=== PATIENT | female | born 1975 | race Caucasian/White ===

== ENCOUNTER 2018-01-06 11:22 | Emergency (ER) | payer OTHER ==
[~2018-01-06] VITALS: Ht 165.1 cm; Wt 61.2 kg
--- NOTE | 2018-01-06 11:36 | ER Report ---
History and Physical Time Seen By MD: 11:35 Hx. of Stated Complaint: PT PRESENTS WITH HX OF FAINTING LAST NIGHT IN HER BR, HITTING HEAD AND SHOULDER. HAS HAD EPISODES IN THE PAST DUE TO LOW BP. FEELS IF SHE HAS NOT RECOVERED. ALSO HAD AN ODD PERIOD THIS MONTH FOLLOWED BY SEVERAL NEGATIVE PREG TESTS HPI/ROS CHIEF COMPLAINT: Syncopal episode HISTORY OF PRESENT ILLNESS: 42-year-old female patient presents to the emergency room with complaint of having had a syncopal episode last night. She states approximately 12:30 last night she got out of bed, feeling nauseated. She went into the bathroom and flushed all. She states that while she was doing that she was crouched down. She states that after she first with that she fainted, hitting her head on the counter as well as on the floor. Patient states that she has had episodes like this in the past, she states that she was evaluated in the hospital previously and was told that it was a vasovagal syncope. Patient states that today she is just not quite feeling right. She states she is feeling like she is having hard time concentrating. She states she is nauseated, however she has not had any vomiting. Patient states she is unable to go to sleep for 2 hours after this, feeling weak and crying. She states she is unable to sleep and that she wake up feeling better this morning. She states she has not been feeling much better. She states she does not normally take any medication. She is not currently doing anything to prevent . She states that her last period was 25 days late and was incredibly light. Patient is concerned that she may have a concussion. REVIEW OF SYSTEMS: Respiratory: No cough, no dyspnea. Cardiovascular: No chest pain, no palpitations. Gastrointestinal: No vomiting, no abdominal pain. Musculoskeletal: As noted above Allergies: Coded Allergies: No Known Drug Allergies (Unverified , 01/06/18) Home Meds Active Scripts Ondansetron (ZOFRAN ODT) 4 Mg Tab.rapdis, 4 MG PO Q6H Y for NAUSEA/VOMITING, # 20 TAB.CYNDI Prov:KHANH DUNNE 01/06/18 Ketorolac Tromethamine (KETOROLAC TROMETHAMINE) 10 Mg Tab, 10 MG PO Q6H, #20 TAB Prov:KHANH DUNNE 01/06/18 Past Medical/Surgical History Patient has a past medical history of vasovagal syncope. Patient has surgical history of a laparoscopic abdominal surgery, ICD placement. Reviewed Nurses Notes: Yes Hx Substance Use Disorder: No Hx Alcohol Use: No Constitutional Vital Sign - Last 24 Hours 01/06/18 01/06/18 01/06/18 01/06/18 11:28 11:28 11:30 11:52 Temp 98.4 Pulse 76 84 Resp 20 B/P (MAP) 107/72 107/72 (84) 114/65 (81) Pulse Ox 99 100 01/06/18 01/06/18 01/06/18 01/06/18 11:55 11:56 11:57 11:59 Pulse 72 89 87 B/P (MAP) 92/59 (70) 90/79 (83) 95/77 (83) 92/59 (70) 90/79 (83) 95/77 (83) 01/06/18 01/06/18 01/06/18 01/06/18 12:00 12:48 12:53 13:00 Pulse 76 80 Resp 12 15 B/P (MAP) 104/58 (73) 98/64 (75) Pulse Ox 98 97 01/06/18 01/06/18 13:23 13:30 Pulse 75 Resp 15 B/P (MAP) 97/65 (76) Pulse Ox 100 Intake and Output 01/06/18 01/06/18 01/07/18 15:00 23:00 07:00 Intake Total 1000 ml Balance 1000 ml Physical Exam General Appearance: The patient is alert, has no immediate need for airway protection and no current signs of toxicity. Eyes: Pupils equal and round no injection. ENT: Tympanic membranes are pearly-fernández, auditory canals are patent, mucous membranes are moist. Respiratory: Chest is non tender, lungs are clear to auscultation. Cardiac: regular rate and rhythm Gastrointestinal: Abdomen is soft and non tender, no masses, bowel sounds normal. Musculoskeletal: Neck: Neck is supple and non tender. Extremities have full range of motion and are non tender. Skin: No rashes or lesions. Neuro: Patient is alert and oriented 4, cranial nerves II through XII grossly intact. Patient was able to complete 3 word recall 3/3 at zero minutes and/3 at 5 minutes. Patient was able to complete serial sevens, she was spot on for 3 consecutive numbers and then she switched to 6 instead of 7. DIFFERENTIAL DIAGNOSIS: After history and physical exam differential diagnosis was considered for syncope including but not limited to vasovagal syncope, arrhythmia, dehydration, and blood loss. Medical Decision Making Data Points Result Diagram: 01/06/18 1133 01/06/18 1133 Laboratory Hematology Test 01/06/18 11:33 01/06/18 12:19 Red Blood Count 4.38 M/uL (4.17-5.56) Mean Corpuscular Volume 94.4 fL (80.0-96.0) Mean Corpuscular Hemoglobin 32.2 pg (26.0-33.0) Mean Corpuscular Hemoglobin Concent 34.1 g/dL (32.0-36.0) Red Cell Distribution Width 12.7 % (11.5-14.5) Mean Platelet Volume 7.3 fL (7.2-11.1) Neutrophils (%) (Auto) 89.2 % (39.4-72.5) Lymphocytes (%) (Auto) 5.3 % (17.6-49.6) Monocytes (%) (Auto) 4.8 % (4.1-12.4) Eosinophils (%) (Auto) 0.4 % (0.4-6.7) Basophils (%) (Auto) 0.3 % (0.3-1.4) Nucleated RBC Relative Count (auto) 0.0 /100WBC Neutrophils # (Auto) 10.8 K/uL (2.0-7.4) Lymphocytes # (Auto) 0.6 K/uL (1.3-3.6) Monocytes # (Auto) 0.6 K/uL (0.3-1.0) Eosinophils # (Auto) 0.0 K/uL (0.0-0.5) Basophils # (Auto) 0.0 K/uL (0.0-0.1) Nucleated RBC Absolute Count (auto) 0.00 K/uL Sodium Level 138 mmol/L (137-145) Potassium Level 3.7 mmol/L (3.5-5.0) Chloride Level 103 mmol/L (98-107) Carbon Dioxide Level 20 mmol/L (22-31) Blood Urea Nitrogen 12 mg/dl (7-18) Creatinine 0.80 mg/dl (0.52-1.04) Glomerular Filtration Rate Calc > 60.0 Whole Blood Glucose 102 mg/DL (75-110) Random Glucose 97 mg/dl (75-110) Calcium Level 9.0 mg/dl (8.4-10.2) Total Bilirubin 0.9 mg/dl (0.2-1.3) Aspartate Amino Transf (AST/SGOT) 20 U/L (0-35) Alanine Aminotransferase (ALT/SGPT) 27 U/L (0-56) Alkaline Phosphatase 73 U/L (0-126) Troponin I < 0.012 ng/ml Total Protein 7.9 gm/dl (6.3-8.2) Albumin 4.3 g/dl (3.5-5.0) Human Chorionic Gonadotropin, Qual Negative (NEGATIVE) Urine Color Yellow Urine Clarity Slightly-cloudy Urine pH 7.0 pH (4.8-9.5) Urine Specific [place] 1.010 Urine Protein Negative mg/dL (NEGATIVE) Urine Glucose (UA) Negative mg/dL (NEGATIVE) Urine Ketones 20 mg/dL (NEGATIVE) Urine Blood Large (NEGATIVE) Urine Nitrite Negative (NEGATIVE) Urine Bilirubin Negative (NEGATIVE) Urine Urobilinogen Negative mg/dL (0.2-1.9) Urine Leukocyte Esterase Negative (NEGATIVE) Urine RBC 5 /HPF (0-2/HPF) Urine WBC 4 /HPF (0-5/HPF) Urine Squamous Epithelial Cells Many /LPF (</=FEW) Urine Transitional Epithelial Cells Few /LPF (NONE-FEW) Urine Bacteria Few /HPF (NONE-FEW) Urine Hyaline Casts Few /LPF (NONE-FEW) Urine Mucus None /HPF (NONE-FEW) Chemistry Test 01/06/18 11:33 01/06/18 12:19 White Blood Count 12.1 k/uL (4.5-11.0) Red Blood Count 4.38 M/uL (4.17-5.56) Hemoglobin 14.1 g/dL (12.0-16.0) Hematocrit 41.4 % (34.0-47.0) Mean Corpuscular Volume 94.4 fL (80.0-96.0) Mean Corpuscular Hemoglobin 32.2 pg (26.0-33.0) Mean Corpuscular Hemoglobin Concent 34.1 g/dL (32.0-36.0) Red Cell Distribution Width 12.7 % (11.5-14.5) Platelet Count 377 K/uL (150-450) Mean Platelet Volume 7.3 fL (7.2-11.1) Neutrophils (%) (Auto) 89.2 % (39.4-72.5) Lymphocytes (%) (Auto) 5.3 % (17.6-49.6) Monocytes (%) (Auto) 4.8 % (4.1-12.4) Eosinophils (%) (Auto) 0.4 % (0.4-6.7) Basophils (%) (Auto) 0.3 % (0.3-1.4) Nucleated RBC Relative Count (auto) 0.0 /100WBC Neutrophils # (Auto) 10.8 K/uL (2.0-7.4) Lymphocytes # (Auto) 0.6 K/uL (1.3-3.6) Monocytes # (Auto) 0.6 K/uL (0.3-1.0) Eosinophils # (Auto) 0.0 K/uL (0.0-0.5) Basophils # (Auto) 0.0 K/uL (0.0-0.1) Nucleated RBC Absolute Count (auto) 0.00 K/uL Glomerular Filtration Rate Calc > 60.0 Whole Blood Glucose 102 mg/DL (75-110) Calcium Level 9.0 mg/dl (8.4-10.2) Total Bilirubin 0.9 mg/dl (0.2-1.3) Aspartate Amino Transf (AST/SGOT) 20 U/L (0-35) Alanine Aminotransferase (ALT/SGPT) 27 U/L (0-56) Alkaline Phosphatase 73 U/L (0-126) Troponin I < 0.012 ng/ml Total Protein 7.9 gm/dl (6.3-8.2) Albumin 4.3 g/dl (3.5-5.0) Human Chorionic Gonadotropin, Qual Negative (NEGATIVE) Urine Color Yellow Urine Clarity Slightly-cloudy Urine pH 7.0 pH (4.8-9.5) Urine Specific [place] 1.010 Urine Protein Negative mg/dL (NEGATIVE) Urine Glucose (UA) Negative mg/dL (NEGATIVE) Urine Ketones 20 mg/dL (NEGATIVE) Urine Blood Large (NEGATIVE) Urine Nitrite Negative (NEGATIVE) Urine Bilirubin Negative (NEGATIVE) Urine Urobilinogen Negative mg/dL (0.2-1.9) Urine Leukocyte Esterase Negative (NEGATIVE) Urine RBC 5 /HPF (0-2/HPF) Urine WBC 4 /HPF (0-5/HPF) Urine Squamous Epithelial Cells Many /LPF (</=FEW) Urine Transitional Epithelial Cells Few /LPF (NONE-FEW) Urine Bacteria Few /HPF (NONE-FEW) Urine Hyaline Casts Few /LPF (NONE-FEW) Urine Mucus None /HPF (NONE-FEW) Urinalysis Test 01/06/18 12:19 Urine Color Yellow Urine Clarity Slightly-cloudy Urine pH 7.0 pH (4.8-9.5) Urine Specific [place] 1.010 Urine Protein Negative mg/dL (NEGATIVE) Urine Glucose (UA) Negative mg/dL (NEGATIVE) Urine Ketones 20 mg/dL (NEGATIVE) Urine Blood Large (NEGATIVE) Urine Nitrite Negative (NEGATIVE) Urine Bilirubin Negative (NEGATIVE) Urine Urobilinogen Negative mg/dL (0.2-1.9) Urine Leukocyte Esterase Negative (NEGATIVE) Urine RBC 5 /HPF (0-2/HPF) Urine WBC 4 /HPF (0-5/HPF) Urine Squamous Epithelial Cells Many /LPF (</=FEW) Urine Transitional Epithelial Cells Few /LPF (NONE-FEW) Urine Bacteria Few /HPF (NONE-FEW) Urine Hyaline Casts Few /LPF (NONE-FEW) Urine Mucus None /HPF (NONE-FEW) EKG/Imaging EKG Interpretation 12 lead EKG: Rhythm: normal sinus rhythm Maxie: normal QRS: normal ST segments: Nonspecific ST abnormality Imaging 2 VIEWS CHEST INDICATION: Chest pain. Syncopal episode last night. COMPARISON: None available FINDINGS: Cardiomediastinal silhouette and pulmonary vessels within normal limits. There is no focal infiltrate or lobar consolidation. There is no pneumothorax or pleural effusion. No nodule. Upper abdomen is unremarkable. No acute bony abnormality. IMPRESSION: 1. No acute cardiopulmonary process. Report Dictated By: Edward Sarabia at 01/06/2018 12:48 PM Report E-Signed By: Edward Sarabia at 01/06/2018 12:49 PM ED Course/Re-evaluation ED Course Patient was admitted on exam room, history and physical were obtained. Differential diagnoses were considered. With the fall, loss consciousness CT scan of the head was done, a CBC, CMP, chest x-ray, EKG. Lab results were unremarkable, chest x-ray located, CT scan of the head was negative. I discussed the findings with the patient and her . I believe that the patient likely did have a vasovagal episode, she's had them in the past. I think that was caused by her nausea. Fact that she does have some slowed thinking I believe she does have a concussion. We'll go ahead and treat her for that. I would like her to follow-up with her primary care provider in the next week. Patient's sensation is having one, I do encourage that she find one for follow-up. I would like her to continue getting workup for the syncope that she' s had. Patient and her verbalized understanding and agreement with plan. Decision to Disposition Date: Jan 06, 2018 Decision to Disposition Time: 13:14 Depart Departure Latest Vital Signs Vital Signs Date Time Temp Pulse Resp B/P (MAP) Pulse Ox O2 Delivery O2 Flow Rate FiO2 01/06/18 13:30 97/65 (76) 01/06/18 13:23 75 15 100 01/06/18 11:28 98.4 Impression: Primary Impression: Concussion Additional Impression: Syncope Condition: Improved Disposition: HOME OR SELF-CARE New Scripts Ondansetron (ZOFRAN ODT) 4 Mg Tab.rapdis 4 MG PO Q6H Y for NAUSEA/VOMITING, #20 TAB.CYNDI Prov: KHANH DUNNE 01/06/18 Ketorolac Tromethamine (KETOROLAC TROMETHAMINE) 10 Mg Tab 10 MG PO Q6H, #20 TAB Prov: KHANH DUNNE 01/06/18 Patient Instructions: Concussion (ED) Additional Instructions: Get plenty of rest. Limit activity by pain. Limit TV and computer time. Monitor for confusion, increased irritability, uncontrollable vomiting, worsening headache or difficulty to arouse. Return to the ER if those are to occur. Follow up with your primary care provider in the next week. Problem Qualifiers Primary Impression: Concussion Encounter type: initial encounter Loss of consciousness presence/duration: without LOC Qualified Codes: S06.0X0A - Concussion without loss of consciousness, initial encounter Additional Impression: Syncope Syncope type: unspecified Qualified Codes: R55 - Syncope and collapse KHANH DUNNE Jan 06, 2018 11:36
[2018-01-06] MEDS ORDERED: NS(*) 0.9% 1000 ML BAG 1,000 ML IV ONE (11:48)
[2018-01-06 11:57] LABS: PLATELET COUNT, AUTOMATED 377 K/uL (150-450)
--- NOTE | 2018-01-06 12:54 | RADIOLOGY IMAGING REPORT ---
FACILITY: [facility] - [place] PATIENT NAME: Radha Johnson : 1975 MR: [id number] V: [id number] EXAM DATE: ORDERING PHYSICIAN: KHANH DUNNE TECHNOLOGIST: Location: [facility] Patient: Radha Johnson : 1975 Visit/Account:[id number] Date of Sevice: 01/06/2018 2 VIEWS CHEST INDICATION: Chest pain. Syncopal episode last night. COMPARISON: None available FINDINGS: Cardiomediastinal silhouette and pulmonary vessels within normal limits. There is no focal infiltrate or lobar consolidation. There is no pneumothorax or pleural effusion. No nodule. Upper abdomen is unremarkable. No acute bony abnormality. IMPRESSION: 1. No acute cardiopulmonary process. Report Dictated By: Edward Sarabia at 01/06/2018 12:48 PM Report E-Signed By: Edward Sarabia at 01/06/2018 12:49 PM WSN:[id number]
--- NOTE | 2018-01-06 12:55 | RADIOLOGY IMAGING REPORT ---
FACILITY: [facility] - [place] PATIENT NAME: Radha Johnson : 1975 MR: [id number] V: [id number] EXAM DATE: ORDERING PHYSICIAN: KHANH DUNNE TECHNOLOGIST: Location: [facility] Patient: Radha Johnson : 1975 Visit/Account:[id number] Date of Sevice: 01/06/2018 EXAMINATION: CT Head without intravenous contrast HISTORY: Syncope. Trauma. TECHNIQUE: Axial images were obtained from the skull base to the vertex without intravenous contrast . Sagittal and coronal reformatted images are also submitted. One of the following dose optimization techniques was utilized in the performance of this exam: Autom ated exposure control; adjustment of the mA and/or kV according to the patient's size; or use of an i terative reconstruction technique. Specific details can be referenced in the facility's radiology C T exam operational policy. COMPARISON: None. FINDINGS: Brain volume: Normal. Ventricles: Negative. Acute ischemic changes: None. Hemorrhage: None. Masses / edema: None. Almaguer-white: Negative. White matter: Negative. Vessels: Negative. Extra-axial: Negative. Calvarium / skull base: Negative. Visualized sinuses / orbits: Rightward nasal septal deviation. Otherwise negative. IMPRESSION: Rightward nasal septal deviation. Otherwise normal noncontrast head CT. Report Dictated By: Brady Roque MD at 01/06/2018 12:47 PM Report E-Signed By: Brady Roque MD at 01/06/2018 12:53 PM WSN:[id number]
--- NOTE | 2018-01-06 12:58 | EKG ---
FACILITY: [facility] - [place], [place] PATIENT NAME: SANTANA AU : [id number] MR: [id number] V: [id number] EXAM DATE: ORDERING PHYSICIAN: KHANH DUNNE TECHNOLOGIST: ABISAI Croft Reason : SYNCOPE Blood Pressure : / mmHG Vent. Rate : 071 BPM Atrial Rate : 071 BPM P-R Int : 140 ms QRS Dur : 080 ms QT Int : 398 ms P-R-T Axes : 074 062 054 degrees QTc Int : 432 ms Normal sinus rhythm Nonspecific ST abnormality Abnormal ECG No previous ECGs available Confirmed by SAMANTHA DENISE ([id number]) on 01/06/2018 5:44:25 PM Referred By: KHANH Confirmed By:SAMANTHA DENISE
[2018-01-06] MEDS ORDERED: KETOROLAC 30 MG/ML VIAL IVP ONE (13:00)
[2018-01-06] MEDS ORDERED: KET10 PO (13:13)
[2018-01-06] MEDS ORDERED: ONDA4TAB PO (13:27)
[2018-01-06 13:30] VITALS: BP 97/65
== END 2018-01-06 13:58 | disposition home or self-care (01) ==
LOC: ER 11:32
DX: S06.0X0A Concussion without loss of consciousness, initial encounter (principal); R55 Syncope and collapse
CPT/HCPCS: 36416; 70450; 71046; 81001; 82948; 84484; 84703; 85025; 93005; 96361; 96374; 99284; J1885; J7030; 82040; 82247; 82310; 82374; 82435; 82565; 82947; 84075; 84132; 84155; 84295; 84450; 84460; 84520

== ENCOUNTER → 2018-01-31 | Outpatient (CLI) | payer OTHER ==
[2018-01-31] VITALS (28 sets, daily range): BP systolic 79–102; BP diastolic 58–81
[~2018-01-31] MED LIST: KET10 PO; NITROGLYCERIN 0.4 MG SUBL SL ONE; NS(*) 0.9% 500 ML BAG 500 ML IV ONE; ONDA4TAB PO
== END ==
LOC: ICU OUTPT 07:07
PROVIDERS: ATTEND Physician Assistant
DX: R55 Syncope and collapse (principal)
CPT/HCPCS: 93660

== ENCOUNTER → 2018-01-31 | Outpatient (CLI) | payer OTHER ==
[~2018-01-31] MED LIST changes: -NITROGLYCERIN 0.4 MG SUBL SL ONE; -NS(*) 0.9% 500 ML BAG 500 ML IV ONE
--- NOTE | 2018-02-01 17:23 | RADIOLOGY IMAGING REPORT ---
FACILITY: [facility] PATIENT NAME: SANTANA AU : [id number] MR: [id number] V: [id number] EXAM DATE: ORDERING PHYSICIAN: EREN VAN TECHNOLOGIST: Roxy Frye EXAMINATION:TWO-DIMENSIONAL ECHOCARDIOGRAPH REASON:SYNCOPE 2D Measurements (normal values in centimeters) LV endLV endRV endVent.LV PostAorticLeftPercent DiastolicSystolicDiastolicSeptumWallRootAtriumShortening (3.5-5.7)(0.9-2.6)(0.6-1.1)(0.6-1.1)(2.0-3.7)(1.9-4.0)(25-35%) [id number]% STROKE VOLUME: 44ml ESTIMATED EJECTION FRACTION:66% PARASTERNAL LONG AXIS: Overall left ventricular systolic function appears to be normal. Right ventricle is the upper range of normal in size. The other chamber sizes all appear to be within normal ranges. The aortic valve appears to open normally. Mitral valve also appears to open normally. The anterior leaflet of the mitral valve though does waver somewhat suggesting there might be slight laxity or even a small tear to the chordae tendenae in the anterior leaflet of the mitral valve. There is a mild amount of mitral insufficiency noted. No wall motion abnormalities are noted. PARASTERNAL SHORT AXIS: Overall left ventricular systolic function again appears to be normal & chamber sizes also appear to be normal. Aortic valve is trileaflet in configuration & appears to open very normally. Color examination of the aortic valve was unremarkable. There is a trace of pulmonic insufficiency & a trace to mild amount of tricuspid insufficiency present. APICAL FOUR AND TWO CHAMBER: Again normal left ventricular ejection fraction & normal chamber sizes with the right ventricle being the upper range of normal in size. The aortic valve area & mitral valve area both measure within normal ranges at 2.6 & 2.0cm2 respectively. The left atrial & right atrial volumes were measured within normal ranges at 13 & 19ml/m2. The tricuspid regurgitation Vmax measured 2.49m/sec. SUBCOSTAL VIEW: No pericardial effusion was noted. Mild amount of mitral insufficiency is noted. There are 2 small jets of mitral insufficiency present. Agitated saline bubble contrast was done. No atrioseptal or ventriculoseptal defects were appreciated. There does appear to be some prolapse of the anterior leaflet of the mitral valve. IVC is normal in size. OVERALL IMPRESSION: 1. Normal left ventricular ejection fraction of 66% with normal diastolic function. 2. Chamber sizes are within normal limits. The right ventricle is the upper range of normal in size. 3. A trileaflet aortic valve with no abnormalities. 4. A trace of tricuspid & pulmonic insufficiency with estimated right ventricular systolic pressure within normal ranges at 33mm Hg. 5. There is mild prolapse of the anterior leaflet of the mitral valve. The valve does seem to flutter which might indicate that there is a tear in one of the chordae tendenae. The valve does coapt fairly well. There is no flail leaflet. There is a mild to borderline moderate amount of mitral insufficiency. There are 2 jets of mitral insufficiency. 6. No atrioseptal or ventriculoseptal defects were appreciated & an agitated bubble contrast study was done. Dictated by: Meet Red M.D. on 01/31/2018 at 21:34 Transcribed by: MATTIE on 02/01/2018 at 7:07 Approved by: Meet Red M.D. on 02/01/2018 at 17:22 [facility]
== END ==
LOC: US 04:15
PROVIDERS: ATTEND Physician Assistant
DX: I07.1 Rheumatic tricuspid insufficiency (principal); I37.1 Nonrheumatic pulmonary valve insufficiency; I34.1 Nonrheumatic mitral (valve) prolapse; I34.0 Nonrheumatic mitral (valve) insufficiency
CPT/HCPCS: 93306